=== PATIENT | female | born 1950 | race Caucasian/White ===

== ENCOUNTER 2019-04-10 06:11 | Day surgery (SDC) | payer MEDICARE, MEDICAID ==
[2019-04-09 11:47] VITALS: BMI 36.5
[~2019-04-10 06:11] MED LIST: EPINEPHrine 0.3 MG in Ophthalmic Irrigation Solution 500 ML IVP SCH
[2019-04-10] MEDS ORDERED: Phenylephrine 2.5% Ophth Soln 5 ML BOT ONE (06:13)
[2019-04-10] MEDS ORDERED: Cyclopentolate 1% Opth Drop 2 ML BOT ONE (06:13)
[2019-04-10] MEDS ORDERED: Midazolam HCl 2 mg/2 ml Vial ONE (06:42)
[2019-04-10] MEDS ORDERED: Fentanyl 100 MCG/2 ML VIAL ONE (06:42)
[2019-04-10] MEDS ORDERED: PROPOFOL 20 ML ONE ×2 (06:42)
[2019-04-10] MEDS ORDERED: Bupivacaine PF 0.75% SDV 10 ML ONE (09:39)
[2019-04-10] MEDS ORDERED: Maxitrol 0.1% Opth Oint 3.5 GM TUBE ONE (09:39)
[2019-04-10] MEDS ORDERED: Indocyanine Green 25 MG/10 ML VIAL ONE (09:39)
[2019-04-10] MEDS ORDERED: Lidocaine 4% PF 5 ML AMP ONE (09:39)
[2019-04-10] MEDS ORDERED: Lidocaine 1% PF 5 ML VIAL ONE (09:39)
[2019-04-10] MEDS ORDERED: PROPOFOL 200 MG/20 ML VIAL ONE (09:39)
[2019-04-10] MEDS ORDERED: Triamcinolone 40 MG/ML VIAL ONE (09:39)
--- NOTE | 2019-04-10 09:52 | OP ---
DATE OF PROCEDURE: 04/10/2019 PRINCIPAL PREOPERATIVE DIAGNOSIS: Epiretinal membrane, right eye. POSTOPERATIVE DIAGNOSIS: Epiretinal membrane, right eye. PROCEDURES PERFORMED: 1. A 25-gauge pars plana vitrectomy, right eye. 2. Epiretinal membrane/internal limiting membrane removal, right eye. ESTIMATED BLOOD LOSS: None. SPECIMENS REMOVED: None. COMPLICATIONS: None. ANESTHESIA: MAC with retrobulbar block. SUMMARY OF OPERATION: The patient was identified in the preop holding area, where the correct eye being the right eye was marked for surgery. The patient was taken to the operating room, where a MAC anesthesia was induced. A retrobulbar block was administered to the right eye. The block consisted of 1:1 ratio of 4% lidocaine 0.75% Marcaine. Total of 5 mL was administered. The right eye was then prepped and draped in usual sterile ophthalmic fashion for surgery. A wire lid speculum was placed. A standard 25-gauge pars plana vitrectomy platform was fashioned with trocars placed approximately 4 mm from the limbus. The infusion was noted to be within the vitreous cavity prior to being turned on to infusion pressure of 30 mmHg. The light pipe Micro vitrector introduced into the eye under visualization of RESIGHT viewing system. A careful core vitrectomy was performed followed by injection of Kenalog. Subsequently, a gentle posterior vitreous detachment was created followed by completion of peripheral shave vitrectomy. Following completion of vitrectomy, the ICG dye was used to stain the internal limiting membrane. Using the Adrien ILM forceps, the internal limiting membrane/epiretinal membrane complex removal was performed in a circumferential fashion about the fovea. The peel extended approximately 2 disk diameters in radius circumferentially. Following peeling, the Micro vitrector was reintroduced in the eye to remove any residual vitreous debris. A 360-degree scleral depressed exam of periphery revealed no defects. The cannulas were sequentially removed with suturing required for the superotemporal sclerotomy with 8-0 Vicryl suture. Following suturing, all sclerotomies were noted to be watertight. Subconjunctival Ancef and Kenalog were injected. The wire lid speculum was removed followed by application of TobraDex ophthalmic ointment and a light patch and shield. The patient tolerated the procedure well and was taken to outpatient recovery area in good condition. Job ID: [id number]
== END 2019-04-10 09:00 | disposition home or self-care (01) ==
LOC: SDC 06:11
PROVIDERS: ATTEND Ophthalmology Retina Specialist
PROC: 08T43ZZ Resection of Right Vitreous, Percutaneous Approach (ICD-10-PCS; principal; 2019-04-10)
PROC: 08NE3ZZ Release Right Retina, Percutaneous Approach (ICD-10-PCS; 2019-04-10)
DX: H35.371 Puckering of macula, right eye (principal); Z88.7 Allergy status to serum and vaccine; Z88.8 Allergy status to other drugs, medicaments and biological substances
CPT/HCPCS: J0171; J2001; J2250; J2704; J3010; J3301; J3490